=== PATIENT | male | born 1990 | race Caucasian/White ===

== ENCOUNTER 2017-06-23 11:50 | Emergency (ER) | payer OTHER ==
[2017-06-23 12:15] LABS: PLATELET COUNT 249 10^3/uL (150-400)
--- NOTE | 2017-06-23 13:31 | EDPHY ---
H & P Stated Complaint: SI Source: Patient, Police, RN/MD Exam Limitations: No limitations - Personal History Current Tetanus/Diphtheria Vaccine: Yes Current Tetanus Diphtheria and Acellular Pertussis (TDAP): Yes - Medical/Surgical History Hx Asthma: Yes Hx Chronic Respiratory Disease: No Hx Diabetes: No Hx Cardiac Disease: No Hx Renal Disease: No Hx Cirrhosis: No Hx Alcoholism: No Hx HIV/AIDS: No Hx Splenectomy or Spleen Trauma: No Other PMH: Depression, ADD - Social History Smoking Status: Never smoked Time Seen by Provider: 06/23/17 13:27 HPI/ROS: HPI: This is a 26-year-old male who presents with Chief Complaint: M1 hold for SI Location: psych Quality: M1 hold for SI Duration: 1 week Signs and Symptoms: no auditory and visual command hallucinations, + suicidal ideation with a plan, no homicidal ideation, not paranoid Timing: Worsening Severity: Severe Context: Patient has a history of severe major depression and generalized anxiety disorder accompanied by ADD, on psychiatric medications and follow up outpatient, presents on M1 hold with [place] police after , Radha Braswell , brought to the [facility] counseling center that patient was telling her he was going to commit suicide and kill himself several times this week. He advised that he was going to use the fire arms that he had in his house. locked the guns up in father in laws safe. He continues to tell her on going leave that he is going to end his life by different methods. He has been planning extensively this week on how he could get away with it. The parent trigger per counseling and his was at the told the patient that she was filing for divorce. Patient reports that he had not any previous inpatient psychiatric admissions or previous suicide attempts. Denies any medical problems. Modifying Factors: None Comment: ROS: see HPI Constitutional: No fever, no chills, no weight loss Eyes: No blurred vision Respiratory: No shortness of breath, no cough Cardiovascular: No chest pain Gastrointestinal: No nausea, no vomiting, no diarrhea Genitourinary: No dysuria Extremities: No myalgias Neurologic: No weakness, no numbness Skin: No rashes Hematologic: No bruising, no bleeding MEDICAL/SURGICAL/SOCIAL HISTORY: Medical history: Major depression, anxiety disorder, attention deficit hyperactivity disorder Surgical history: Shoulder surgery Social history: Family history noncontributory. CONSTITUTIONAL: Calm and cooperative, adult male, awake and alert, no obvious distress HEENT: Atraumatic and normocephalic, PERRL, EOMI. Nares patent; no rhinorrhea; no nasal mucosal edema. Tympanic membranes clear. Oropharynx clear, no exudate and moist pink mucosa. Airway patent. No lymphadenopathy. No meningismus. Cardiovascular: Normal S1/S2, regular rate, regular rhythm, without murmur rub or gallop. PULMONARY/CHEST: Symmetrical and nontender. Clear to auscultation bilaterally. Good air movement. No accessory muscle usage. ABDOMEN: Soft, nondistended, nontender, no rebound, no guarding, no peritoneal signs, no masses or organomegaly. No CVAT. EXTREMITIES: 2/2 pulses, strength 5/5, no deformities, no clubbing, no cyanosis or edema. NEUROLOGICAL: no focal neuro deficits. GCS 15. SKIN: Warm and dry, tattoos present on chest, no erythema. no rash. Good capillary refill. PSYCH: Good eye contact,no flight of ideas, organized thought process, fair insight and judgment, no auditory and visual command hallucinations, + suicidal ideation with a plan, no homicidal ideation, not paranoid (Edu,Terra) Constitutional: Initial Vital Signs Temperature (C) 36.8 C 06/23/17 11:54 Heart Rate 86 06/23/17 11:54 Respiratory Rate 16 06/23/17 11:54 Blood Pressure 146/88 H 06/23/17 11:54 O2 Sat (%) 96 06/23/17 11:54 O2 Delivery Mode Room Air Allergies/Adverse Reactions: No Known Allergies Allergy (Unverified 06/23/17 11:52) Home Medications: Medication Instructions Recorded Adderall 10 MG (*) 06/23/17 Rexulti 06/23/17 Wellbutrin Xl 06/23/17 Medical Decision Making ED Course/Re-evaluation: Agree with M1 hold being placed as patient is gravely disabled and has active plans of suicide. Patient remains calm and cooperative. No chemical interventions required at this time. Labs and UDS reviewed; positive for amphetamine but taking Adderall. medically clear for mental health evaluation. 1245: [facility] notified of mental health evaluation 1630: End of shift. Signed over to Dr. Simpson pending mental health evaluation. This patient was seen under the supervision of my secondary supervising physician. I evaluated care for this patient independently. Discussed this patient with who did not see the patient. (Char Sorensen) This patient was turned over to me at change of shift. This patient is been fully evaluated by the psychiatric team and they are going to admit her. he is accepted at an outlying facility for his depression and suicidality. Appropriate transfer paperwork has been completed (Jose Manuel Simpson) Differential Diagnosis: Differential diagnosis includes but is not limited to functional in situational depression, generalized anxiety disorder, psychosis, suicidal ideation. (Char Sorensen) - Data Points Laboratory Results: Laboratory Results 06/23/17 11:53 06/23/17 11:53 06/23/17 06/23/17 06/23/17 12:00 11:53 11:53 WBC 10.64 10^3/uL H 10^3/uL (3.80-9.50) RBC 5.27 10^6/uL 10^6/uL (4.40-6.38) Hgb 16.0 g/dL g/dL (13.7-17.5) Hct 47.5 % % (40.0-51.0) MCV 90.1 fL fL (81.5-99.8) MCH 30.4 pg pg (27.9-34.1) MCHC 33.7 g/dL g/dL (32.4-36.7) RDW 13.2 % % (11.5-15.2) Plt Count 249 10^3/uL 10^3/uL (150-400) MPV 11.0 fL fL (8.7-11.7) Neut % (Auto) 67.6 % % (39.3-74.2) Lymph % (Auto) 21.5 % % (15.0-45.0) Woodson % (Auto) 9.2 % % (4.5-13.0) Eos % (Auto) 0.7 % % (0.6-7.6) Baso % (Auto) 0.6 % % (0.3-1.7) Nucleat RBC Rel Count 0.0 % % (0.0-0.2) Absolute Neuts (auto) 7.20 10^3/uL H 10^3/uL (1.70-6.50) Absolute Lymphs (auto) 2.29 10^3/uL 10^3/uL (1.00-3.00) Absolute Monos (auto) 0.98 10^3/uL H 10^3/uL (0.30-0.80) Absolute Eos (auto) 0.07 10^3/uL 10^3/uL (0.03-0.40) Absolute Basos (auto) 0.06 10^3/uL 10^3/uL (0.02-0.10) Absolute Nucleated RBC 0.00 10^3/uL 10^3/uL (0-0.01) Immature Gran % 0.4 % % (0.0-1.1) Immature Gran # 0.04 10^3/uL 10^3/uL (0.00-0.10) Sodium 141 mEq/L mEq/L (135-145) Potassium 4.2 mEq/L mEq/L (3.5-5.2) Chloride 104 mEq/L mEq/L (97-110) Carbon Dioxide 22 mEq/l mEq/l (22-31) Anion Gap 15 mEq/L mEq/L (8-16) BUN 14 mg/dL mg/dL (7-23) Creatinine 1.1 mg/dL mg/dL (0.7-1.3) Estimated GFR > 60 Glucose 82 mg/dL mg/dL (70-100) Calcium 9.9 mg/dL mg/dL (8.5-10.4) Urine Opiates Screen NEGATIVE (NEGATIVE) Urine Barbiturates NEGATIVE (NEGATIVE) Ur Phencyclidine Scrn NEGATIVE (NEGATIVE) Ur Amphetamine Screen NON-NEGATIVE H (NEGATIVE) U Benzodiazepines Scrn NEGATIVE (NEGATIVE) Urine Cocaine Screen NEGATIVE (NEGATIVE) U Marijuana (THC) Screen NEGATIVE (NEGATIVE) Ethyl Alcohol < 10 mg/dL mg/dL (0-10) Departure - Departure Disposition: Other Psych, Not Jose F Clinical Impression: Severe major depression without psychotic features, Suicidal ideations Condition: Fair
[2017-06-23 23:06] VITALS: BP 131/78
== END 2017-06-23 23:18 ==
DX: R45.851 Suicidal ideations (principal); F32.2 Major depressive disorder, single episode, severe without psychotic features; J45.909 Unspecified asthma, uncomplicated
CPT/HCPCS: 80305; G0480